=== PATIENT | male | born 1970 | race American Indian/Alaskan Native ===

== ENCOUNTER 2017-10-24 14:01 | Observation (INO) | payer MEDICAID, OTHER ==
[2017-10-24] MEDS ORDERED: Sodium Chloride 0.9% 500 ML IV STA (14:58)
--- NOTE | 2017-10-24 15:10 | ED PDOC ---
Lower Extremity Pain/Injury Time Seen by Provider: 10/24/17 14:43 Chief Complaint (Nursing): Lower Extremity Problem/Injury Chief Complaint (Provider): b/l leg swelling History Per: Patient History/Exam Limitations: no limitations Onset/Duration Of Symptoms: Days (x10 days) Current Symptoms Are (Timing): Still Present Additional Complaint(s): Roberto Echols is a 47 year old male, with a past medical history of HTN, who presents to the emergency department complaining of a worsening bilateral leg swelling associated with shortness of breath onset for x10 days. Patient is also complaining of knee pain due to swelling. Patient works driving trucks, and states he had similar symptoms x2 years ago. Per patient, he was scanned for blood clots, had a cardiac workup which came back normal and was diagnosed with edema. Patient has been compliant with blood pressure medications. He denies any fever, chills, chest pain, nausea, vomit, diarrhea, headache, dizziness, cough, congestion, numbness or tingling. No further medical complaints. Past Medical History Reviewed: Historical Data, Nursing Documentation, Vital Signs Vital Signs: Last Vital Signs Temp 98.6 F 10/24/17 14:22 Pulse 73 10/24/17 14:22 Resp 20 10/24/17 14:22 BP 171/116 H 10/24/17 14:22 Pulse Ox 96 10/24/17 14:22 - Medical History PMH: HTN Denies: CHF - Surgical History Surgical History: No Surg Hx - Family History Family History: States: Unknown Family Hx - Social History Ex-Smoker (has not smoked in the last 12 months): Yes Alcohol: Social Drugs: Cannabis - Home Medications Home Medications: Ambulatory Orders Medication Instructions Recorded Furosemide [Lasix] 40 mg PO DAILY 10/24/17 Metoprolol Tartrate [Lopressor] 25 mg PO DAILY 10/24/17 Minoxidil [Minoxidil] 2.5 mg PO DAILY 10/24/17 NIFEdipine ER [Procardia XL] 90 mg PO DAILY 10/24/17 Valsartan [Diovan] 80 mg PO DAILY 10/24/17 hydroCHLOROthiazide [Hydrodiuril] 25 mg PO DAILY 10/24/17 - Allergies Allergies/Adverse Reactions: Allergies Allergy/AdvReac Type Severity Reaction Status Date / Time aspirin Allergy SHORTNESS Verified 10/24/17 14:21 OF BREATH banana AdvReac PAIN Verified 10/24/17 14:21 Review of Systems ROS Statement: Except As Marked, All Systems Reviewed And Found Negative Constitutional: Negative for: Fever, Chills Cardiovascular: Positive for: Edema (b/l legs). Negative for: Chest Pain Respiratory: Positive for: Shortness of Breath Gastrointestinal: Negative for: Nausea, Vomiting, Diarrhea Musculoskeletal: Positive for: Leg Pain (b/l knee pain) Neurological: Negative for: Numbness (tingling), Headache, Dizziness Physical Exam - Reviewed Nursing Documentation Reviewed: Yes Vital Signs Reviewed: Yes - Physical Exam Appears: Positive for: Non-toxic, No Acute Distress (obese) Head Exam: Positive for: ATRAUMATIC, NORMOCEPHALIC Skin: Positive for: Normal Color, Warm, Dry Eye Exam: Positive for: Normal appearance, EOMI, PERRL ENT: Positive for: Normal ENT Inspection. Negative for: Nasal Congestion Neck: Positive for: Painless ROM Cardiovascular/Chest: Positive for: Regular Rate, Rhythm. Negative for: Murmur Respiratory: Positive for: Decreased Breath Sounds (Mild decrease. Clear to auscultation). Negative for: Respiratory Distress Pulses-Dorsalis Pedis (L): 2+ Pulses-Dorsalis Pedis (R): 2+ Gastrointestinal/Abdominal: Positive for: Normal Exam, Soft. Negative for: Tenderness Back: Positive for: Normal Inspection. Negative for: L CVA Tenderness, R CVA Tenderness, Vertebral Tenderness Extremity: Positive for: Normal ROM (all extremities), Pedal Edema, Swelling (1 + pitting edema bilaterally). Negative for: Tenderness, Calf Tenderness, Deformity Neurologic/Psych: Positive for: Alert, Oriented. Negative for: Motor/Sensory Deficits - Laboratory Results Result Diagrams: 10/24/17 15:41 10/24/17 15:41 Interpretation Of Abn Labs: 494 bnp - ECG ECG: Positive for: Interpreted By Me, Viewed By Me ECG Rhythm: Positive for: Normal ST Segment, Sinus Rhythm O2 Sat by Pulse Oximetry: 96 (RA) Pulse Ox Interpretation: Normal - Radiology X-Ray: Read By Radiologist X-Ray Interpretation: No Acute Disease - Other Rad ct X-Ray: Read By Radiologist X-Ray Interpretation: nodules R lung - CT Scan/US US Other Rad Studies (CT/US): Read By Radiologist Other Rad Interpretation: no acute dvt - Progress ED Course And Treament: 183: Stable. Dyspnea on exertion. Will admit tele obs for further eval. Has risk factors and pulmonary nodules. Dr. Edwards aware and will admit. Medical Decision Making Medical Decision Making: Initial Impression: Initial Plan: --VBG Shock Panel --Angio chest PE Protocol [CT] --EKG --B-Type Natriuretic Peptide --CMP --Troponin I --CBC w/ differential --PTT --PT --Chest portable [RAD] --Sodium Chloride 500 ml IV 100 mls/hr --Duplex Lower Extrm Vein Bilat [US] --Reevaluation 16:11 Extremity US FINDINGS: COMMON FEMORAL VEIN: Right CFV: Unremarkable. Left CFV: Unremarkable. SUPERFICIAL FEMORAL VEIN: Right SFV: Unremarkable. Left SFV: Unremarkable. POPLITEAL VEIN: Right Popliteal: Unremarkable. Left Popliteal: Unremarkable. POSTERIOR TIBIAL VEIN: Right PTV: Unremarkable. Left PTV: Unremarkable. OTHER FINDINGS: None. IMPRESSION: No evidence of deep venous thrombosis in the right or left lower extremity. Scribe Attestation: Documented by Sarbjit Eaton, acting as a scribe for Mp Silva MD Provider Scribe Attestation: All medical record entries made by the Scribe were at my direction and personally dictated by me. I have reviewed the chart and agree that the record accurately reflects my personal performance of the history, physical exam, medical decision making, and the department course for this patient. I have also personally directed, reviewed, and agree with the discharge instructions and disposition. Disposition - Clinical Impression Clinical Impression: CHF (congestive heart failure), Pulmonary nodules - Patient ED Disposition Is Patient to be Admitted: Yes Counseled Patient/Family Regarding: Studies Performed, Diagnosis - Disposition Disposition Time: 18:36 Condition: FAIR - Pt Status Changed To: Hospital Disposition Of: Observation - POA Present On Arrival: None
[2017-10-24 15:32] LABS: VENOUS BLOOD GAS BASE EXCESS 9.7 mmol/L (0.0-2.0); VENOUS BLOOD GAS PCO2 56 mmHg (40-60); VENOUS BLOOD GAS PO2 27 mm/Hg (30-55); VENOUS BLOOD PH 7.42 (7.32-7.43)
[2017-10-24 15:48] LABS: BASO % 0.5 % (0.0-2.0); EOS # 0.2 K/uL (0.0-0.7); EOS % 2.2 % (0.0-4.0); HEMOGLOBIN 16.1 g/dL (12.0-18.0); LYMPH # 1.3 K/uL (1.0-4.3); LYMPH % 14.3 % (20.0-40.0); MEAN CELL VOLUME 88.6 fl (80.0-94.0); MEAN CORPUSCULAR HEMOGLOBIN 29.3 pg (27.0-31.0); MEAN PLATELET VOLUME 8.1 fl (7.2-11.7); MONO # 0.7 K/uL (0.0-0.8); NEUT # 6.8 K/uL (1.8-7.0); NRBC % 0.1 % (0.0-0.0); RBC 5.49 Mil/uL (4.40-5.90); RED CELL DISTRIBUTION WIDTH 14.3 % (11.5-14.5)
[2017-10-24 15:53] LABS: INR 1.1 (0.9-1.2); PROTHROMBIN TIME 12.1 Seconds (9.8-13.1)
[2017-10-24] MEDS ORDERED: Sodium Chloride 0.9% 100 ML ONE (15:53)
[2017-10-24] MEDS ORDERED: Iodixanol 320 MG/ML 100 ML BOTTLE IV ONE (15:53)
[2017-10-24 15:57] LABS: ALT/SGPT 33 U/L (21-72); AST/SGOT 28 U/L (17-59); BLOOD UREA NITROGEN 17 mg/dl (9-20); CALCIUM 9.5 mg/dL (8.4-10.2); GFR AFRICAN-AMERICAN > 60; GFR NON-AFRICAN AMERICAN > 60
[2017-10-24 16:12] LABS: B-TYPE NATRIURETIC PEPTIDE 494 pg/ml (0-450)
--- NOTE | 2017-10-24 16:13 | US ---
PROCEDURE: Bilateral lower extremity venous duplex Doppler. HISTORY: r/o dvt COMPARISON: None available. TECHNIQUE: Bilateral common femoral, superficial femoral, popliteal and posterior tibial veins were evaluated. Flow was assessed with color Doppler, compressibility, assessment of phasic flow and augmentation response. FINDINGS: COMMON FEMORAL VEIN: Right CFV: Unremarkable. Left CFV: Unremarkable. SUPERFICIAL FEMORAL VEIN: Right SFV: Unremarkable. Left SFV: Unremarkable. POPLITEAL VEIN: Right Popliteal: Unremarkable. Left Popliteal: Unremarkable. POSTERIOR TIBIAL VEIN: Right PTV: Unremarkable. Left PTV: Unremarkable. OTHER FINDINGS: None. IMPRESSION: No evidence of deep venous thrombosis in the right or left lower extremity.
--- NOTE | 2017-10-24 17:33 | RAD ---
HISTORY: Dyspnea. COMPARISON: 12/30/2015 FINDINGS: LUNGS: No active pulmonary disease. PLEURA: No significant pleural effusion identified, no pneumothorax apparent. CARDIOVASCULAR: Cardiomegaly. No evidence of acute, significant cardiovascular disease. OSSEOUS STRUCTURES: No significant abnormalities. VISUALIZED UPPER ABDOMEN: Normal. OTHER FINDINGS: None. IMPRESSION: No active disease. No significant interval change compared to the prior examination(s).
--- NOTE | 2017-10-24 18:18 | CT ---
PROCEDURE: CT Chest with contrast (Pulmonary Angiogram) HISTORY: Chest pain COMPARISON: Comparison made with prior CT chest dated 12/30/2015. TECHNIQUE: Contiguous helical/ transaxial computed tomography images were obtained of the chest in the pulmonary arterial phase of enhancement. Coronal and sagittal reformatted images were created and reviewed. Intravenous contrast dose: 461.39 Radiation dose: Total exam DLP = mGy-cm. This CT exam was performed using one or more of the following dose reduction techniques: Automated exposure control, adjustment of the mA and/or kV according to patient size, and/or use of iterative reconstruction technique. Note that the examination is limited due to large body habitus streak with streak and beam hardening artifact. FINDINGS: PULMONARY ARTERIES: The visualized pulmonary trunk, right and left main, lobar and segmental branches of the pulmonary arteries appear relatively well opacified with no definitive filling defects seen to suggest acute central pulmonary embolus however note that the proximal -distal subsegmental and peripheral branches are poorly seen due to at aforementioned limitation. Pulmonary trunk measures approximately 3.4 cm. AORTA: No acute findings. No thoracic aortic aneurysm. Ascending thoracic aorta measures approximately 3.9 cm and descending thoracic aorta measures approximately 3.0 cm. LUNGS: There is an elliptical shaped soft tissue density in the right lateral sulcus which measures approximately 2.4 x 1.9 cm abutting the pleural surfaces of uncertain etiology. While this could represent a area of rounded atelectasis or pneumonia, the possibility of a neoplasm not excluded. There is a small approximately 6 mm nodule left anterolateral upper lung field best seen on axial series 5 image number 48 note this was present on the prior study. Second 6 mm nodular density right lower lobe bordering the major fissure best seen on axial image number 52 also vaguely present on the prior exam though increased in size slightly. Two additional small subpleural nodules seen in the posterolateral aspect right lower lobe (ease measuring 4 mm seen on axial image 59 (new since prior study) and 4.4 mm seen on axial image number 67 (see also felt to be present on the prior exam There are areas of linear/curvilinear atelectasis/scarring in the left lung base PLEURAL SPACES: Unremarkable. No effusion or pneumothorax. . HEART: Heart is mildly enlarged. No significant pericardial effusion. LYMPH NODES: There is a mildly enlarged right paratracheal lymph node measuring approximately 19 mm. Several small on nonspecific mediastinal lymph nodes are present. Central airways are midline and patent. No large central endoluminal lesions are identified. BONES, CHEST WALL: Unremarkable. No fracture or destructive lesion OTHER FINDINGS: Unremarkable. IMPRESSION: Limited study demonstrating no evidence of central pulmonary embolus. There are multiple small nodular densities scattered throughout the right upper and lower lobes of few of which most of which were present on the prior exam however. There is also a new elliptical shaped soft tissue density in the right lateral sulcus that measures approximately 2.4 x 1.9 cm that could represent some post inflammatory rounded atelectasis or scarring. This was not seen on the prior exam. Follow-up CT scan at 3 month interval recommended. Note these findings were discussed with Dr. Silva at approximately 6:10 p.m. with written down and read back verification. Consider followup pulmonology consultation as well.
--- NOTE | 2017-10-24 19:21 | CP.PCM.HP ---
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 His breathing improved after resting for a few seconds or minutes. He had similar symptoms 2 yrs ago and had cardiac work up which turned out normal except for the pulmonary nodules on the right middle lobe. He was diagnosed with venous insufficiency for his pedal edema and was prescribed Lasix. Patient admitted not able to take his medications the past 2 days.. He denied wheezing, chest pain, fever, chills, nausea or vomiting. Present on Admission - Present on Admission Any Indicators Present on Admission: No History of DVT/PE: No History of Uncontrolled Diabetes: No Urinary Catheter: No Decubitus Ulcer Present: No Review of Systems - Review of Systems All systems: reviewed and no additional remarkable complaints except (aside from those mentioned above, 12 point system review were negative by me) Past Patient History - Infectious Disease Hx of Infectious Diseases: None - Past Medical History & Family History Past Medical History?: Yes - Past Social History Smoking Status: Light Smoker < 10 Cigarettes Daily (smoked 1PPD 10 yrs ago) Alcohol: Social (drink about 6 cans/bottles of beer on weekends) Drugs: Cannabis - CARDIAC Hx Congestive Heart Failure: No Hx Hypertension: Yes - PULMONARY Hx Asthma: Yes Other/Comment: pulmonary nodules on right middle lobe, etiology??? - NEUROLOGICAL Hx Neurological Disorder: No - HEENT Hx HEENT Problems: No - RENAL Hx Chronic Kidney Disease: No - ENDOCRINE/METABOLIC Hx Endocrine Disorders: No - HEMATOLOGICAL/ONCOLOGICAL Hx Blood Disorders: No - INTEGUMENTARY Hx Dermatological Problems: No - MUSCULOSKELETAL/RHEUMATOLOGICAL Hx Musculoskeletal Disorders: No Hx Falls: No - GASTROINTESTINAL Hx Gastrointestinal Disorders: No - GENITOURINARY/GYNECOLOGICAL Hx Genitourinary Disorders: No - PSYCHIATRIC Hx Psychophysiologic Disorder: No - SURGICAL HISTORY Hx Surgeries: No - ANESTHESIA Hx Anesthesia: No Meds Allergies/Adverse Reactions: Allergies Allergy/AdvReac Type Severity Reaction Status Date / Time aspirin Allergy SHORTNESS Verified 10/24/17 14:21 OF BREATH banana AdvReac PAIN Verified 10/24/17 14:21 Physical Exam - Constitutional Appears: No Acute Distress, Other (obese) - Head Exam Head Exam: ATRAUMATIC - Eye Exam Eye Exam: absent: Scleral icterus - ENT Exam ENT Exam: Mucous Membranes Moist - Neck Exam Neck exam: Negative for: Meningismus - Respiratory Exam Respiratory Exam: absent: Rales, Rhonchi, Wheezes, Respiratory Distress - Cardiovascular Exam Cardiovascular Exam: REGULAR RHYTHM, +S1, +S2 - GI/Abdominal Exam GI & Abdominal Exam: Soft. absent: Tenderness - Rectal Exam Rectal Exam: Deferred - Extremities Exam Extremities exam: Positive for: pedal edema (3+ bilateral pedal edema). Negative for: calf tenderness - Back Exam Back exam: absent: tenderness - Neurological Exam Neurological exam: Alert, Oriented x3 - Psychiatric Exam Psychiatric exam: Normal Affect - Skin Skin Exam: Dry, Intact Results - Vital Signs Recent Vital Signs: Last Vital Signs Temp 98.6 F 10/24/17 14:22 Pulse 73 10/24/17 14:22 Resp 20 10/24/17 14:22 BP 171/116 H 10/24/17 14:22 Pulse Ox 96 10/24/17 18:36 - Labs Result Diagrams: 10/24/17 15:41 10/24/17 15:41 Labs: Laboratory Results - last 24 hr 10/24/17 10/24/17 10/24/17 15:29 15:41 15:41 WBC 9.0 RBC 5.49 Hgb 16.1 Hct 48.7 MCV 88.6 D MCH 29.3 MCHC 33.0 RDW 14.3 Plt Count 258 MPV 8.1 Neut % (Auto) 75.0 Lymph % (Auto) 14.3 L [place] % (Auto) 8.0 Eos % (Auto) 2.2 Baso % (Auto) 0.5 Neut # (Auto) 6.8 Lymph # (Auto) 1.3 [place] # (Auto) 0.7 Eos # (Auto) 0.2 Baso # (Auto) 0.0 PT INR APTT pO2 27 L VBG pH 7.42 VBG pCO2 56 VBG HCO3 31.3 VBG Total CO2 38.0 H VBG O2 Sat (Calc) 59.4 VBG Base Excess 9.7 H VBG Potassium 3.5 L Sodium 139.0 146 Chloride 103.0 100 Glucose 128 H Lactate 1.1 FiO2 21.0 Potassium 3.7 Carbon Dioxide 33 H Anion Gap 17 BUN 17 Creatinine 1.0 Est GFR ( Amer) > 60 Est GFR (Non-Af Amer) > 60 Random Glucose 124 H Calcium 9.5 Total Bilirubin 0.7 AST 28 ALT 33 Alkaline Phosphatase 62 Troponin I 0.0160 NT-Pro-B Natriuret Pep 494 H Total Protein 8.2 Albumin 4.0 Globulin 4.2 H Albumin/Globulin Ratio 1.0 Venous Blood Potassium 3.5 L 10/24/17 15:41 WBC RBC Hgb Hct MCV MCH MCHC RDW Plt Count MPV Neut % (Auto) Lymph % (Auto) [place] % (Auto) Eos % (Auto) Baso % (Auto) Neut # (Auto) Lymph # (Auto) [place] # (Auto) Eos # (Auto) Baso # (Auto) PT 12.1 INR 1.1 APTT 34.0 pO2 VBG pH VBG pCO2 VBG HCO3 VBG Total CO2 VBG O2 Sat (Calc) VBG Base Excess VBG Potassium Sodium Chloride Glucose Lactate FiO2 Potassium Carbon Dioxide Anion Gap BUN Creatinine Est GFR ( Amer) Est GFR (Non-Af Amer) Random Glucose Calcium Total Bilirubin AST ALT Alkaline Phosphatase Troponin I NT-Pro-B Natriuret Pep Total Protein Albumin Globulin Albumin/Globulin Ratio Venous Blood Potassium Assessment & Plan - Assessment and Plan (Free Text) Assessment: 47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 His breathing improved after resting for a few seconds or minutes. He had similar symptoms 2 yrs ago and had cardiac work up which turned out normal except for the pulmonary nodules on the right middle lobe. He was diagnosed with venous insufficiency for his pedal edema and was prescribed Lasix. Patient admitted not able to take his medications the past 2 days.. He denied wheezing, chest pain, fever, chills, nausea or vomiting. 1. Dyspnea on Mild/Moderate Effort probably secondary to morbid obesity and missing his medications ECHO serial Troponin continue Lasix 40mg PO daily continue HCTZ 25mg PO daily Duoneb via nebulizer q 4hrs prn both Minoxidil and Nifedipine causes pedal edema, so we'll hold for the meantime cardiology consult with Dr Neil 2. Bilateral Pedal Edema venous doppler negative for DVT probably from venous insufficiency plus not being able to take his medications for 2 days continue Lasix and HCTZ 3. Pulmonary Nodules multiple nodules on right upper and lower lobes more than 2 yrs ago pulmonary consult with Dr Rodriguez 4. Brochial Asthma no wheezing complained or noted Duoneb q 4hrs prn 5. DVT prophylaxis Lovenox 40mg SC daily
[2017-10-25 05:58] LABS: BASO % 0.4 % (0.0-2.0); EOS # 0.2 K/uL (0.0-0.7); EOS % 2.8 % (0.0-4.0); LYMPH # 1.3 K/uL (1.0-4.3); LYMPH % 20.7 % (20.0-40.0); MEAN CELL VOLUME 88.8 fl (80.0-94.0); MEAN CORPUSCULAR HEMOGLOBIN 29.7 pg (27.0-31.0); MEAN CORPUSCULAR HGB CONC 33.4 g/dL (33.0-37.0); MEAN PLATELET VOLUME 7.9 fl (7.2-11.7); MONO # 0.6 K/uL (0.0-0.8); MONO % 9.5 % (0.0-10.0); NEUT # 4.2 K/uL (1.8-7.0); NEUT % 66.6 % (50.0-75.0); RBC 5.4 Mil/uL (4.40-5.90); WHITE BLOOD COUNT 6.3 K/uL (4.8-10.8)
[2017-10-25 06:18] LABS: BLOOD UREA NITROGEN 18 mg/dl (9-20); CALCIUM 9.1 mg/dL (8.4-10.2); GFR AFRICAN-AMERICAN > 60; GFR NON-AFRICAN AMERICAN > 60
[2017-10-25 08:00] VITALS: RESP 20
[2017-10-25] MEDS ORDERED: Pantoprazole 40 mg EC Tab PO SCH (09:00)
[2017-10-25] MEDS ORDERED: Enoxaparin 40 mg Syringe SC SCH (09:00)
--- NOTE | 2017-10-25 09:29 | CP.PCM.CON ---
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 As long as 8-9 hours, has come into the hospital complaining of worsening pedal edema and severe shortness of breath on minimal exertion. The patient, an ex-smoker until 2009 who has been taking anti-hypertensive medications since 2009 was hospitalized with worsening pedal edema couple of years back and was treated with diuretics and antihypertensives and went home much relieved at that time. He indicates that since he quit smoking he has put on approximately 150 pounds and at this point weighs more than 350 pounds. He admits to snoring. He denies any history of diabetes and denies any effort related chest pain or prior myocardial infarction. He has been taking diuretics for number of years. He denies any history of orthopnea. The patient does admit to eating indiscriminately because in his line of work he often eats food at a fast food establishment. He indicates that there is no salt or calorie restriction with his diet. The patient indicates that he has severe osteoarthritic pains in both knees severely limiting his capacity to walk. The patient denies any family history of diabetes or vascular disease. Physical examination shows a middle aged extremely obese man who is alert awake and coherent. He is able to get in and out of bed unassisted. His heart rate was 68 bpm and regular and his blood pressure was 134/74 mmHg. His jugular venous pressure could not be evaluated because of a short thick neck. there was pitting edema over both lower extremities. No evidence of varicosities was present his extremities were warm his nailbeds were pink. There was no central or peripheral cyanosis. There was no clubbing. The apex was not palpable. The first and second heart sounds were normal. There was no murmur or gallop. There were no rales. His abdomen was protuberant liver and spleen were not palpable. His electrocardiogram showed sinus rhythm with nonspecific ST-T changes and earlier electrocardiogram of 2016 showed a similar pattern. The echocardiogram of 2016 showed marked left ventricular hypertrophy with preserved left ventricle systolic function and a depressed diastolic compliance. No significant valve abnormality was detected. His lab data shows normal BUN/creatinine with a proBNP of 454 pg per mL. His hemoglobin and hematocrit were noted. His electrolytes were normal. His TSH was normal. Impression: Severe exogenous obesity in a patient with hypertension. Among his medications the patient has been taking nifedipine and minoxidil both of which could promote fluid retention and occurrence of pedal edema. A proBNP of 454 pg per mL his barely elevated. Venous duplex of lower extremities do not show any evidence of DVTs. An echocardiogram has been requested and planned for today. There are multiple factors that can promote pedal edema in this patient who tends to eat salty food often and then sits immobile during his work for hours. Also as noted earlier he takes medications that can promote fluid retention. His severe shortness of breath could be a consequence off extreme obesity, marked deconditioning due to a sedentary lifestyle as well as possible lung disease related to his earlier history of cigarette use. The patient should certainly be evaluated for possible obstructive sleep apnea with polysomnography. Past Patient History - Infectious Disease Hx of Infectious Diseases: None - Past Medical History & Family History Past Medical History?: Yes - Past Social History Smoking Status: Former Smoker - CARDIAC Hx Cardiac Disorders: Yes Hx Congestive Heart Failure: No Hx Hypertension: Yes - PULMONARY Hx Respiratory Disorders: Yes Hx Asthma: Yes Other/Comment: pulmonary nodules on right middle lobe, etiology??? - NEUROLOGICAL Hx Neurological Disorder: No - HEENT Hx HEENT Problems: No - RENAL Hx Chronic Kidney Disease: No - ENDOCRINE/METABOLIC Hx Endocrine Disorders: No - HEMATOLOGICAL/ONCOLOGICAL Hx Blood Disorders: No - INTEGUMENTARY Hx Dermatological Problems: No - MUSCULOSKELETAL/RHEUMATOLOGICAL Hx Musculoskeletal Disorders: Yes Hx Arthritis: Yes (right hip and bilateral knees) Hx Falls: No - GASTROINTESTINAL Hx Gastrointestinal Disorders: No - GENITOURINARY/GYNECOLOGICAL Hx Genitourinary Disorders: No - PSYCHIATRIC Hx Psychophysiologic Disorder: No Hx Substance Use: Yes (used marijuana before) - SURGICAL HISTORY Hx Surgeries: No - ANESTHESIA Hx Anesthesia: No Meds Allergies/Adverse Reactions: Allergies Allergy/AdvReac Type Severity Reaction Status Date / Time aspirin Allergy SHORTNESS Verified 10/24/17 14:21 OF BREATH banana AdvReac PAIN Verified 10/24/17 14:21 - Medications Medications: Current Medications Docusate Sodium (Colace) 100 mg PO BID PRN PRN Reason: Constipation Enoxaparin Sodium (Lovenox) 40 mg SC DAILY [facility] PRN Reason: Protocol Last Admin: 10/25/17 09:14 Dose: 40 mg Furosemide (Lasix) 40 mg PO DAILY [facility] Last Admin: 10/25/17 09:13 Dose: 40 mg Hydrochlorothiazide (Hydrodiuril) 25 mg PO DAILY [facility] Last Admin: 10/25/17 09:14 Dose: 25 mg Metoprolol Tartrate (Lopressor) 25 mg PO DAILY [facility] Last Admin: 10/25/17 09:13 Dose: 25 mg Pantoprazole Sodium (Protonix Ec Tab) 40 mg PO DAILY [facility] Last Admin: 10/25/17 09:14 Dose: 40 mg Valsartan (Diovan) 80 mg PO DAILY [facility] Last Admin: 10/25/17 09:13 Dose: 80 mg Results - Vital Signs Recent Vital Signs: Last Vital Signs Temp 98.2 F 10/25/17 08:00 Pulse 73 10/25/17 09:13 Resp 20 10/25/17 08:00 BP 134/85 10/25/17 09:13 Pulse Ox 94 L 10/25/17 08:00 - Labs Result Diagrams: 10/25/17 04:38 10/25/17 04:38 Labs: Laboratory Results - last 24 hr 10/24/17 10/24/17 10/24/17 15:29 15:41 15:41 WBC 9.0 RBC 5.49 Hgb 16.1 Hct 48.7 MCV 88.6 D MCH 29.3 MCHC 33.0 RDW 14.3 Plt Count 258 MPV 8.1 Neut % (Auto) 75.0 Lymph % (Auto) 14.3 L [place] % (Auto) 8.0 Eos % (Auto) 2.2 Baso % (Auto) 0.5 Neut # (Auto) 6.8 Lymph # (Auto) 1.3 [place] # (Auto) 0.7 Eos # (Auto) 0.2 Baso # (Auto) 0.0 PT INR APTT pO2 27 L VBG pH 7.42 VBG pCO2 56 VBG HCO3 31.3 VBG Total CO2 38.0 H VBG O2 Sat (Calc) 59.4 VBG Base Excess 9.7 H VBG Potassium 3.5 L Sodium 139.0 146 Chloride 103.0 100 Glucose 128 H Lactate 1.1 FiO2 21.0 Potassium 3.7 Carbon Dioxide 33 H Anion Gap 17 BUN 17 Creatinine 1.0 Est GFR ( Amer) > 60 Est GFR (Non-Af Amer) > 60 Random Glucose 124 H Calcium 9.5 Total Bilirubin 0.7 AST 28 ALT 33 Alkaline Phosphatase 62 Troponin I 0.0160 NT-Pro-B Natriuret Pep 494 H Total Protein 8.2 Albumin 4.0 Globulin 4.2 H Albumin/Globulin Ratio 1.0 TSH 3rd Generation Venous Blood Potassium 3.5 L 10/24/17 10/24/17 10/25/17 15:41 23:33 04:38 WBC 6.3 RBC 5.40 Hgb 16.0 Hct 48.0 MCV 88.8 MCH 29.7 MCHC 33.4 RDW 14.0 Plt Count 246 MPV 7.9 Neut % (Auto) 66.6 Lymph % (Auto) 20.7 [place] % (Auto) 9.5 Eos % (Auto) 2.8 Baso % (Auto) 0.4 Neut # (Auto) 4.2 Lymph # (Auto) 1.3 [place] # (Auto) 0.6 Eos # (Auto) 0.2 Baso # (Auto) 0.0 PT 12.1 INR 1.1 APTT 34.0 pO2 VBG pH VBG pCO2 VBG HCO3 VBG Total CO2 VBG O2 Sat (Calc) VBG Base Excess VBG Potassium Sodium Chloride Glucose Lactate FiO2 Potassium Carbon Dioxide Anion Gap BUN Creatinine Est GFR ( Amer) Est GFR (Non-Af Amer) Random Glucose Calcium Total Bilirubin AST ALT Alkaline Phosphatase Troponin I 0.0260 NT-Pro-B Natriuret Pep Total Protein Albumin Globulin Albumin/Globulin Ratio TSH 3rd Generation Venous Blood Potassium 10/25/17 10/25/17 04:38 04:38 WBC RBC Hgb Hct MCV MCH MCHC RDW Plt Count MPV Neut % (Auto) Lymph % (Auto) [place] % (Auto) Eos % (Auto) Baso % (Auto) Neut # (Auto) Lymph # (Auto) [place] # (Auto) Eos # (Auto) Baso # (Auto) PT INR APTT pO2 VBG pH VBG pCO2 VBG HCO3 VBG Total CO2 VBG O2 Sat (Calc) VBG Base Excess VBG Potassium Sodium 146 Chloride 98 Glucose Lactate FiO2 Potassium 4.0 Carbon Dioxide 34 H Anion Gap 18 BUN 18 Creatinine 1.0 Est GFR ( Amer) > 60 Est GFR (Non-Af Amer) > 60 Random Glucose 105 Calcium 9.1 Total Bilirubin AST ALT Alkaline Phosphatase Troponin I 0.0170 NT-Pro-B Natriuret Pep Total Protein Albumin Globulin Albumin/Globulin Ratio TSH 3rd Generation 1.12 Venous Blood Potassium
--- NOTE | 2017-10-25 13:54 | CP.PCM.CON ---
History of Present Illness - History of Present Illness History of Present Illness: Pulmonary consult for a 47 y/o M, Hx of light smoker and Asthma, admitted to [facility] [place] on 10/24/17 due to pain and worsening b/l lower extremities swelling/pedal edema and associated severe SOB, no cough and no relief of symptoms for 10 days [employer]. Worsening symptoms: BETANCOURT, Morbid Obesity ( BMP 52.57). 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 Aggravated factor: Walking/exercise. Pt denied: Fever, chills, chest congestion, n/v/d, abdominal pain, urinary symptoms, dizziness, syncope, CP, palpitations, numbness, sick contact, recent travel out of [facility]. Chest CT shows: Multiple small pulmonary nodules RUL/RLL. CXR: No active disease. Ext U-S: No DVT. Review of Systems - Constitutional Constitutional: Other (severe exogenous obesity) - EENT Eyes: Other (negative) Ears: Other (negative) Nose/Mouth/Throat: Other (negative) - Cardiovascular Cardiovascular: Other (negative) - Respiratory Respiratory: Dyspnea, Dyspnea on Exertion - Gastrointestinal Gastrointestinal: Other (negative) - Genitourinary Genitourinary: Other (negative) - Musculoskeletal Musculoskeletal: Other (b/l knees) - Integumentary Integumentary: Other (negative) - Neurological Neurological: Other (negative) - Psychiatric Psychiatric: Other (negative) - Endocrine Endocrine: Change in Body Appearance - Hematologic/Lymphatic Hematologic: Other (negative) Past Patient History - Infectious Disease Hx of Infectious Diseases: None - Past Medical History & Family History Past Medical History?: Yes Pertinent Family History: Unknown - Past Social History Smoking Status: Light Smoker < 10 Cigarettes Daily (Use to smokes 1PPD 10 yrs ago) Alcohol: Social Drugs: Cannabis (former smoker.) Home Situation {Lives}: With Family - CARDIAC Hx Cardiac Disorders: Yes Hx Congestive Heart Failure: No Hx Hypertension: Yes - PULMONARY Hx Respiratory Disorders: Yes Hx Asthma: Yes Other/Comment: pulmonary nodules on right middle lobe, etiology??? - NEUROLOGICAL Hx Neurological Disorder: No - HEENT Hx HEENT Problems: No - RENAL Hx Chronic Kidney Disease: No - ENDOCRINE/METABOLIC Hx Endocrine Disorders: No - HEMATOLOGICAL/ONCOLOGICAL Hx Blood Disorders: No - INTEGUMENTARY Hx Dermatological Problems: No - MUSCULOSKELETAL/RHEUMATOLOGICAL Hx Musculoskeletal Disorders: Yes Hx Arthritis: Yes (right hip and bilateral knees) Hx Falls: No - GASTROINTESTINAL Hx Gastrointestinal Disorders: No - GENITOURINARY/GYNECOLOGICAL Hx Genitourinary Disorders: No - PSYCHIATRIC Hx Psychophysiologic Disorder: No Hx Substance Use: Yes (used marijuana before) - SURGICAL HISTORY Hx Surgeries: No - ANESTHESIA Hx Anesthesia: No Meds Allergies/Adverse Reactions: Allergies Allergy/AdvReac Type Severity Reaction Status Date / Time aspirin Allergy SHORTNESS Verified 10/24/17 14:21 OF BREATH banana AdvReac PAIN Verified 10/24/17 14:21 - Medications Medications: Current Medications Acetaminophen (Tylenol 325mg Tab) 650 mg PO Q4 PRN PRN Reason: Pain, Mild (1-3) Docusate Sodium (Colace) 100 mg PO BID PRN PRN Reason: Constipation Enoxaparin Sodium (Lovenox) 40 mg SC DAILY [facility] PRN Reason: Protocol Last Admin: 10/25/17 09:14 Dose: 40 mg Furosemide (Lasix) 40 mg PO DAILY [facility] Last Admin: 10/25/17 09:13 Dose: 40 mg Hydrochlorothiazide (Hydrodiuril) 25 mg PO DAILY [facility] Last Admin: 10/25/17 09:14 Dose: 25 mg Metoprolol Tartrate (Lopressor) 25 mg PO DAILY [facility] Last Admin: 10/25/17 09:13 Dose: 25 mg Pantoprazole Sodium (Protonix Ec Tab) 40 mg PO DAILY [facility] Last Admin: 10/25/17 09:14 Dose: 40 mg Valsartan (Diovan) 80 mg PO DAILY [facility] Last Admin: 10/25/17 09:13 Dose: 80 mg Physical Exam - Constitutional Appears: No Acute Distress - Head Exam Head Exam: NORMAL INSPECTION - Eye Exam Eye Exam: PERRL - ENT Exam ENT Exam: Normal Exam - Neck Exam Neck exam: Positive for: Normal Inspection - Respiratory Exam Respiratory Exam: NORMAL BREATHING PATTERN - Cardiovascular Exam Cardiovascular Exam: REGULAR RHYTHM - GI/Abdominal Exam GI & Abdominal Exam: Normal Bowel Sounds, Soft - Extremities Exam Extremities exam: Positive for: pedal edema (Non pittingedema 3+ b/l) - Neurological Exam Neurological exam: Alert, Oriented x3 - Psychiatric Exam Psychiatric exam: Normal Mood - Skin Skin Exam: Warm Results - Vital Signs Recent Vital Signs: Last Vital Signs Temp 98.4 F 10/25/17 12:19 Pulse 73 10/25/17 12:19 Resp 20 10/25/17 12:19 BP 151/99 H 10/25/17 12:19 Pulse Ox 96 10/25/17 12:19 maria ines [place]er - Labs Result Diagrams: 10/25/17 04:38 10/25/17 04:38 Labs: Laboratory Results - last 24 hr 10/24/17 10/24/17 10/24/17 15:29 15:41 15:41 WBC 9.0 RBC 5.49 Hgb 16.1 Hct 48.7 MCV 88.6 D MCH 29.3 MCHC 33.0 RDW 14.3 Plt Count 258 MPV 8.1 Neut % (Auto) 75.0 Lymph % (Auto) 14.3 L [place] % (Auto) 8.0 Eos % (Auto) 2.2 Baso % (Auto) 0.5 Neut # (Auto) 6.8 Lymph # (Auto) 1.3 [place] # (Auto) 0.7 Eos # (Auto) 0.2 Baso # (Auto) 0.0 PT INR APTT pO2 27 L VBG pH 7.42 VBG pCO2 56 VBG HCO3 31.3 VBG Total CO2 38.0 H VBG O2 Sat (Calc) 59.4 VBG Base Excess 9.7 H VBG Potassium 3.5 L Sodium 139.0 146 Chloride 103.0 100 Glucose 128 H Lactate 1.1 FiO2 21.0 Potassium 3.7 Carbon Dioxide 33 H Anion Gap 17 BUN 17 Creatinine 1.0 Est GFR ( Amer) > 60 Est GFR (Non-Af Amer) > 60 Random Glucose 124 H Calcium 9.5 Total Bilirubin 0.7 AST 28 ALT 33 Alkaline Phosphatase 62 Troponin I 0.0160 NT-Pro-B Natriuret Pep 494 H Total Protein 8.2 Albumin 4.0 Globulin 4.2 H Albumin/Globulin Ratio 1.0 TSH 3rd Generation Venous Blood Potassium 3.5 L 10/24/17 10/24/17 10/25/17 15:41 23:33 04:38 WBC 6.3 RBC 5.40 Hgb 16.0 Hct 48.0 MCV 88.8 MCH 29.7 MCHC 33.4 RDW 14.0 Plt Count 246 MPV 7.9 Neut % (Auto) 66.6 Lymph % (Auto) 20.7 [place] % (Auto) 9.5 Eos % (Auto) 2.8 Baso % (Auto) 0.4 Neut # (Auto) 4.2 Lymph # (Auto) 1.3 [place] # (Auto) 0.6 Eos # (Auto) 0.2 Baso # (Auto) 0.0 PT 12.1 INR 1.1 APTT 34.0 pO2 VBG pH VBG pCO2 VBG HCO3 VBG Total CO2 VBG O2 Sat (Calc) VBG Base Excess VBG Potassium Sodium Chloride Glucose Lactate FiO2 Potassium Carbon Dioxide Anion Gap BUN Creatinine Est GFR ( Amer) Est GFR (Non-Af Amer) Random Glucose Calcium Total Bilirubin AST ALT Alkaline Phosphatase Troponin I 0.0260 NT-Pro-B Natriuret Pep Total Protein Albumin Globulin Albumin/Globulin Ratio TSH 3rd Generation Venous Blood Potassium 10/25/17 10/25/17 04:38 04:38 WBC RBC Hgb Hct MCV MCH MCHC RDW Plt Count MPV Neut % (Auto) Lymph % (Auto) [place] % (Auto) Eos % (Auto) Baso % (Auto) Neut # (Auto) Lymph # (Auto) [place] # (Auto) Eos # (Auto) Baso # (Auto) PT INR APTT pO2 VBG pH VBG pCO2 VBG HCO3 VBG Total CO2 VBG O2 Sat (Calc) VBG Base Excess VBG Potassium Sodium 146 Chloride 98 Glucose Lactate FiO2 Potassium 4.0 Carbon Dioxide 34 H Anion Gap 18 BUN 18 Creatinine 1.0 Est GFR ( Amer) > 60 Est GFR (Non-Af Amer) > 60 Random Glucose 105 Calcium 9.1 Total Bilirubin AST ALT Alkaline Phosphatase Troponin I 0.0170 NT-Pro-B Natriuret Pep Total Protein Albumin Globulin Albumin/Globulin Ratio TSH 3rd Generation 1.12 Venous Blood Potassium reviewed J.P. - Imaging and Cardiology CT scan - chest Status: Report reviewed by me (J.P.) Chest x-ray Status: Report reviewed by me (AlliP.) Assessment & Plan (1) Morbid obesity Status: Chronic Priority: High (2) Pulmonary nodules Status: Acute Priority: High (3) History of asthma Status: Chronic (4) History of smoking Status: Chronic - Assessment and Plan (Free Text) Plan: F/u CT Chest for pulmonary nodule in 3 months, call my office for f/u to schedule PFT and sleep study. Weight loss modalities well discussed with patient. - Date & Time Date: 10/25/17
[2017-10-25 15:52] VITALS: BP 145/89; PULSE 71; TEMP 98.8; O2SAT 93
--- NOTE | 2017-10-25 16:23 | CP.PCM.DIS ---
Provider - Provider Date of Admission: 10/24/17 18:34 Attending physician: Ed Edwards MD Consults: Dr Rashaad Rodriguez Time Spent in preparation of Discharge (in minutes): 25 Diagnosis - Discharge Diagnosis (1) Morbid obesity Status: Chronic Comment: caused of dyspnea on effort. advised to lose weight (2) Pedal edema Status: Chronic Comment: secondary to venous insufficiency and medications (Minoxidil and Nifedipine). venous doppler negative for DVT. ECHO: within normal limits (3) Pulmonary nodules Status: Chronic Comment: etiology unknown. advised follow up with paper novelty maker. advised to repeat CT scan of chest in 6 months or a year (4) HTN (hypertension) Status: Acute Comment: DC Minoxidil and Nifedipine. continue Metoprolol and Valsartan plus Lasix and HCTZ. monitor BP Hospital Course - Lab Results Lab Results: Most Recent Lab Values WBC 6.3 K/uL (4.8-10.8) 10/25/17 04:38 RBC 5.40 Mil/uL (4.40-5.90) 10/25/17 04:38 Hgb 16.0 g/dL (12.0-18.0) 10/25/17 04:38 Hct 48.0 % (35.0-51.0) 10/25/17 04:38 MCV 88.8 fl (80.0-94.0) 10/25/17 04:38 MCH 29.7 pg (27.0-31.0) 10/25/17 04:38 MCHC 33.4 g/dL (33.0-37.0) 10/25/17 04:38 RDW 14.0 % (11.5-14.5) 10/25/17 04:38 Plt Count 246 K/uL (130-400) 10/25/17 04:38 MPV 7.9 fl (7.2-11.7) 10/25/17 04:38 Neut % (Auto) 66.6 % (50.0-75.0) 10/25/17 04:38 Lymph % (Auto) 20.7 % (20.0-40.0) 10/25/17 04:38 [place] % (Auto) 9.5 % (0.0-10.0) 10/25/17 04:38 Eos % (Auto) 2.8 % (0.0-4.0) 10/25/17 04:38 Baso % (Auto) 0.4 % (0.0-2.0) 10/25/17 04:38 Neut # (Auto) 4.2 K/uL (1.8-7.0) 10/25/17 04:38 Lymph # (Auto) 1.3 K/uL (1.0-4.3) 10/25/17 04:38 [place] # (Auto) 0.6 K/uL (0.0-0.8) 10/25/17 04:38 Eos # (Auto) 0.2 K/uL (0.0-0.7) 10/25/17 04:38 Baso # (Auto) 0.0 K/uL (0.0-0.2) 10/25/17 04:38 PT 12.1 Seconds (9.8-13.1) 10/24/17 15:41 INR 1.1 (0.9-1.2) 10/24/17 15:41 APTT 34.0 Seconds (25.6-37.1) 10/24/17 15:41 pO2 27 mm/Hg (30-55) L 10/24/17 15:29 VBG pH 7.42 (7.32-7.43) 10/24/17 15:29 VBG pCO2 56 mmHg (40-60) 10/24/17 15:29 VBG HCO3 31.3 mmol/L 10/24/17 15:29 VBG Total CO2 38.0 mmol/L (22-28) H 10/24/17 15:29 VBG O2 Sat (Calc) 59.4 % (40-65) 10/24/17 15:29 VBG Base Excess 9.7 mmol/L (0.0-2.0) H 10/24/17 15:29 VBG Potassium 3.5 mmol/L (3.6-5.2) L 10/24/17 15:29 Sodium 139.0 mmol/L (132-148) 10/24/17 15:29 Chloride 103.0 mmol/L (98-107) 10/24/17 15:29 Glucose 128 mg/dL (75-110) H 10/24/17 15:29 Lactate 1.1 mmol/L (0.7-2.1) 10/24/17 15:29 FiO2 21.0 % 10/24/17 15:29 Sodium 146 mmol/l (132-148) 10/25/17 04:38 Potassium 4.0 MMOL/L (3.6-5.0) 10/25/17 04:38 Chloride 98 mmol/L (98-107) 10/25/17 04:38 Carbon Dioxide 34 mmol/L (22-30) H 10/25/17 04:38 Anion Gap 18 (10-20) 10/25/17 04:38 BUN 18 mg/dl (9-20) 10/25/17 04:38 Creatinine 1.0 mg/dl (0.8-1.5) 10/25/17 04:38 Est GFR ( Amer) > 60 10/25/17 04:38 Est GFR (Non-Af Amer) > 60 10/25/17 04:38 Random Glucose 105 mg/dL (75-110) 10/25/17 04:38 Calcium 9.1 mg/dL (8.4-10.2) 10/25/17 04:38 Total Bilirubin 0.7 mg/dl (0.2-1.3) 10/24/17 15:41 AST 28 U/L (17-59) 10/24/17 15:41 ALT 33 U/L (21-72) 10/24/17 15:41 Alkaline Phosphatase 62 U/L (38-126) 10/24/17 15:41 Troponin I 0.0170 ng/mL (0.00-0.120) 10/25/17 04:38 NT-Pro-B Natriuret Pep 494 pg/ml (0-450) H 10/24/17 15:41 Total Protein 8.2 G/DL (6.3-8.2) 10/24/17 15:41 Albumin 4.0 g/dL (3.5-5.0) 10/24/17 15:41 Globulin 4.2 gm/dL (2.2-3.9) H 10/24/17 15:41 Albumin/Globulin Ratio 1.0 (1.0-2.1) 10/24/17 15:41 TSH 3rd Generation 1.12 mIU/ML (0.46-4.68) 10/25/17 04:38 Venous Blood Potassium 3.5 mmol/L (3.6-5.2) L 10/24/17 15:29 - Hospital Course Hospital Course: 47 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 His breathing improved after resting for a few seconds or minutes. He had similar symptoms 2 yrs ago and had cardiac work up which turned out normal except for the pulmonary nodules on the right middle lobe. He was diagnosed with venous insufficiency for his pedal edema and was prescribed Lasix. Patient admitted not able to take his medications the past 2 days. Work ups revealed again the same thing as was 2 yrs ago. Patient did not have heart failure but pulmonary nodules on the right lobe has increased.. He was advised to DC Minoxidil and Procardia and was advised to lose weight if possible. He was also advised follow up with paper novelty maker for further study on his pulmonary nodules and have a sleep study to rule out sleep apnea. Patient was discharged in stable and improved condition. Discharge Exam - Head Exam Head Exam: ATRAUMATIC - Eye Exam Eye Exam: absent: Scleral icterus - ENT Exam ENT Exam: Mucous Membranes Moist - Respiratory Exam Respiratory Exam: absent: Rales, Rhonchi, Wheezes, Respiratory Distress - Cardiovascular Exam Cardiovascular Exam: REGULAR RHYTHM, +S1, +S2 - GI/Abdominal Exam GI & Abdominal Exam: Soft. absent: Tenderness - Rectal Exam Rectal Exam: Deferred - Extremities Exam Extremities exam: pedal edema (pitting pedal edema +3) - Neurological Exam Neurological exam: Alert, Oriented x3 - Psychiatric Exam Psychiatric exam: Normal Affect - Skin Skin Exam: Dry, Intact Discharge Plan - Follow Up Plan Condition: FAIR Disposition: HOME/ ROUTINE
--- NOTE | 2017-10-26 10:43 | CARD ---
APPROVED REPORT EXAM: Two-dimensional and M-mode echocardiogram with Doppler and color Doppler. Other Information Quality : GoodRhythm : NSR INDICATION Congestive Heart Failure 2D DIMENSIONS IVSd1.85 (0.7-1.1cm)LVDd5.71 (3.9-5.9cm) LVOT Diameter3.12 (1.8-2.4cm)PWd1.43 (0.7-1.1cm) IVSs2.06 (0.8-1.2cm)LVDs4.07 (2.5-4.0cm) FS (%) 28.7 %PWs2.36 (0.8-1.2cm) M-Mode DIMENSIONS Left Atrium (MM)5.04 (2.5-4.0cm)IVSd1.76 (0.7-1.1cm) Aortic Root3.60 (2.2-3.7cm)LVDd5.81 (4.0-5.6cm) Aortic Cusp Exc.2.72 (1.5-2.0cm)PWd1.65 (0.7-1.1cm) IVSs2.21 cmFS (%) 41 % LVDs3.42 (2.0-3.8cm)PWs2.83 cm Mitral Valve MV E Olsozqzw27.6cm/sMV DECEL [id number] A Zwxjwpzr38.4cm/s MV FRZ29ikH/A ratio0.7MVA (PHT)2.46cm2 TDI Lateral E' Peak V3.91cm/sMedial E' Peak V4.97cm/sE/Lateral E'12.2 E/Medial E'9.6 Pulmonary Valve PV Peak Wvonvxyk033.0cm/s LEFT VENTRICLE The left ventricle is normal size. There is normal left ventricular wall thickness. The left ventricular function is normal. The left ventricular ejection fraction is within the normal range. The Ejection Fraction is 65-70%. There is normal LV segmental wall motion. The left ventricular diastolic function is normal. RIGHT VENTRICLE The right ventricle is normal size. The right ventricular systolic function is normal. ATRIA The left atrium size is normal. The right atrium size is normal. AORTIC VALVE The aortic valve is normal in structure. No aortic regurgitation is present. There is no aortic valvular stenosis. MITRAL VALVE The mitral valve is normal in structure. There is no mitral valve stenosis. There is no mitral valve regurgitation noted. TRICUSPID VALVE The tricuspid valve is normal in structure. There is no tricuspid valve regurgitation noted. There is no tricuspid valve stenosis. PULMONIC VALVE The pulmonary valve is normal in structure. There is no pulmonic valvular regurgitation. GREAT VESSELS The aortic root is normal in size. The IVC is normal in size and collapses >50% with inspiration. PERICARDIAL EFFUSION The pericardium appears normal. <Conclusion> The left ventricle is normal size. The left ventricular function is normal. The left ventricular ejection fraction is within the normal range. The Ejection Fraction is 65-70%.
--- NOTE | 2017-10-26 11:40 | CARD ---
APPROVED REPORT EKG Measurement Heart [id number] <Conclusion> Normal sinus rhythm Prolonged QT Abnormal ECG
== END 2017-10-25 19:08 | disposition home or self-care (01) ==
LOC: H.ER 14:01 → H.ERHOLD 18:34 → H.TEL 21:10
DX: J81.1 Chronic pulmonary edema (principal); E66.01 Morbid (severe) obesity due to excess calories; Z68.43 Body mass index [BMI] 50.0-59.9, adult; I87.2 Venous insufficiency (chronic) (peripheral); I10 Essential (primary) hypertension; J45.909 Unspecified asthma, uncomplicated; M19.90 Unspecified osteoarthritis, unspecified site; R91.8 Other nonspecific abnormal finding of lung field; Z91.14 Patient's other noncompliance with medication regimen; F17.210 Nicotine dependence, cigarettes, uncomplicated
CPT/HCPCS: 36415; 71045; 71275; 80048; 80053; 82803; 83880; 84443; 84484; 85025; 85610; 85730; 93005; 93306; 93970; 96372; 96374; 96375; 99285; G0378; J1650; J1885; J1940; J7040; Q9967